=== PATIENT | male | born 1990 | race Two or more races ===

== ENCOUNTER 2024-08-15 22:39 | Emergency (ER) | payer MEDICAID ==
[~2024-08-15] VITALS: Ht 182.9 cm; Wt 90.7 kg
[2024-08-15] MEDS ORDERED: MORPHINE SULFATE 4 MG/1 ML DISP.SYRIN ONE (23:42)
[2024-08-15] MEDS ORDERED: DEXAMETHASONE SOD PHOSPHATE 4 MG INJ ONE (23:42)
[2024-08-15] MEDS: MORPHINE SULFATE 4 MG/1 ML DISP.SYRIN IV ONE (23:51)
[2024-08-15] MEDS: DEXAMETHASONE SOD PHOSPHATE 4 MG INJ IV ONE (23:51)
[2024-08-16 00:02] LABS: BASOPHILS % (AUTO) 0.1 % (0.0-2.0); EOSINOPHILS # (AUTO) 0.3 K/uL (0.0-0.7); EOSINOPHILS % (AUTO) 2.5 % (0.0-7.0); HEMATOCRIT 51.6 % (36.7-47.1); HEMOGLOBIN 17.3 g/dL (12.5-16.3); LYMPHOCYTES # (AUTO) 2.4 K/uL (0.8-4.8); LYMPHOCYTES % (AUTO) 18.7 % (20.5-51.5); MEAN CORPUSCULAR HEMOGLOBIN 30.2 uug (23.8-33.4); MEAN CORPUSCULAR HGB CONC 34 g/dL (32.5-36.3); MEAN CORPUSCULAR VOLUME 90.3 fL (73.0-96.2); MONOCYTES # (AUTO) 1.1 K/uL (0.1-1.30); MONOCYTES % (AUTO) 8.2 % (0.0-11.0); NEUTROPHILS # (AUTO) 9.1 K/uL (1.8-8.9); NEUTROPHILS % (AUTO) 70.5 % (38.5-71.5); PLATELET COUNT (AUTO) 176 K/uL (152-348); RED BLOOD CELL COUNT(AUTO) 5.72 MIL/uL (4.06-5.63); RED CELL DISTRIBUTION WIDTH 14.5 % (12.1-16.2); WHITE BLOOD COUNT (AUTO) 12.9 K/uL (3.6-10.2)
[2024-08-16 00:11] LABS: CALCIUM 9.5 mg/dL (8.5-10.1); DIFFERENTIAL COMMENT 1; POTASSIUM 3.6 mmol/L (3.5-5.1)
[2024-08-16 00:16] LABS: ALBUMIN 4.1 g/dL (3.4-5.0); BILIRUBIN,TOTAL 0.5 mg/dL (0.2-1.0); TOTAL PROTEIN, SERUM 7.5 g/dL (6.4-8.2)
[2024-08-16 00:19] LABS: C-REACTIVE PROTEIN 3.79 mg/dL (0.00-0.30)
[2024-08-16] MEDS ORDERED: PIPERACILLIN/TAZOBACTAM/D5W 50 ML IV ONE ×2 (00:40→07:47)
[2024-08-16] MEDS ORDERED: IV NORMAL SALINE 250 ML IV ONE (01:03)
[2024-08-16] MEDS ORDERED: IOHEXOL 300MG/ML 100 ML INFUS..BTL ONE (01:03)
[2024-08-16] MEDS ORDERED: SWABABLE VALVE TRANSFER SET EA MC ONE (01:03)
[2024-08-16] MEDS: IV LACTATED RINGERS SOLUTION 1,000 ML BAG IV ONE (01:08)
[2024-08-16] MEDS: PIPERACILLIN SODIUM/TAZOBACTAM 3.375 G in IV DEXTROSE 5% 50 ML IV ONE ×2 (01:08→07:52)
[2024-08-16] MEDS ORDERED: MORPHINE SULFATE 4 MG/1 ML DISP.SYRIN ONE ×2 (05:22→13:25)
[2024-08-16] MEDS: MORPHINE SULFATE 4 MG/1 ML DISP.SYRIN IV ONE ×3 (05:32→13:33)
[2024-08-16 13:19] VITALS: O2SAT 95
[2024-08-16] MEDS ORDERED: ONDANSETRON 4 MG/2 ML VIAL ONE (13:24)
[2024-08-16] MEDS: ONDANSETRON 4 MG/2 ML VIAL IV ONE (13:33)
[2024-08-16] MEDS: PIPERACILLIN SODIUM/TAZOBACTAM 3.375 G in IV DEXTROSE 5% 50 ML IV SCH (14:00)
== END 2024-08-16 14:00 | disposition short-term general hospital (02) ==
LOC: ER 22:43
DX: A41.9 Sepsis, unspecified organism (principal); R65.20 Severe sepsis without septic shock; K04.7 Periapical abscess without sinus; I10 Essential (primary) hypertension; F17.200 Nicotine dependence, unspecified, uncomplicated; R22.1 Localized swelling, mass and lump, neck; M54.2 Cervicalgia
CPT/HCPCS: 36415; 70491; 83605; 85025; 85610; 86140; 87040; A4606; A4663; J1100; J2270; J2405; J2543; J7120; Q9967

== ENCOUNTER 2025-01-19 19:49 | Emergency (ER) | payer SELFPAY ==
[~2025-01-19] VITALS: Ht 177.8 cm; Wt 107.7 kg
[2025-01-19 21:40] LABS: PLATELET COUNT (AUTO) 163 K/uL (152-348); RED BLOOD CELL COUNT(AUTO) 5.60 MIL/uL (4.06-5.63); RED CELL DISTRIBUTION WIDTH 13.5 % (12.1-16.2); WHITE BLOOD COUNT (AUTO) 10.6 K/uL (3.6-10.2)
[2025-01-19 21:45] LABS: CREATININE 1.2 mg/dL (0.6-1.3); SODIUM SERUM 144.0 mmol/L (136-145); UREA NITROGEN, BLOOD 14.0 mg/dL (7-18)
[2025-01-19] MEDS ORDERED: KETOROLAC TROMETHAMINE 15 MG INJ ONE (21:49)
[2025-01-19] MEDS ORDERED: ONDANSETRON 4 MG/2 ML VIAL ONE (21:49)
[2025-01-19] MEDS ORDERED: HYDROMORPHONE 1 MG/1 ML DISP.SYRIN ONE ×2 (21:50→23:05)
[2025-01-19] MEDS: HYDROMORPHONE 1 MG/1 ML DISP.SYRIN IV ONE ×2 (21:56→23:26)
[2025-01-19] MEDS: KETOROLAC TROMETHAMINE 15 MG INJ IVP ONE (21:56)
[2025-01-19] MEDS: ONDANSETRON 4 MG/2 ML VIAL IV ONE (21:56)
[2025-01-19 21:58] LABS: ASPARTATE AMINOTRANSFERASE 28.0 U/L (15-37); TOTAL PROTEIN, SERUM 7.7 g/dL (6.4-8.2)
[2025-01-19 22:06] LABS: *BILIRUBIN,URIN NEGATIVE (NEGATIVE); *BLOOD, URINE NEGATIVE (NEGATIVE); *CLARITY,URINE CLEAR (CLEAR); *COLOR,URINE YELLOW (YELLOW); *PROTEIN,URINE NEGATIVE (NEGATIVE); *UROBILINOGEN,URINE 0.2 E.U./dl (NORMAL); LEUKOCYTE ESTERASE ,URINE NEGATIVE (NEGATIVE); NITRITE, URINE NEGATIVE (NEGATIVE); UGLUCOSE NEGATIVE (NEGATIVE)
[2025-01-19 22:07] LABS: *KETONES,URINE NEGATIVE (NEGATIVE)
[2025-01-20 00:35] VITALS: BP 130/80
[2025-01-20] MEDS ORDERED: HYDR-3980 PO (01:26)
[2025-01-20] MEDS ORDERED: HYDROMORPHONE 1 MG/1 ML DISP.SYRIN ONE (01:31)
[2025-01-20] MEDS: HYDROMORPHONE 1 MG/1 ML DISP.SYRIN IV ONE (01:34)
[2025-01-20 01:42] VITALS: BP 131/79; O2SAT 99
== END 2025-01-20 01:32 | disposition home or self-care (01) ==
LOC: ER 19:56
DX: R10.11 Right upper quadrant pain (principal); F17.210 Nicotine dependence, cigarettes, uncomplicated; K57.30 Diverticulosis of large intestine without perforation or abscess without bleeding
CPT/HCPCS: 99285; 74176; 76705; 99406; 80076; 80048; 81003; 83690; 85025; 36415; 93005; J1885; J2405; J1171 ×3; A4606; A4663

== ENCOUNTER 2025-01-22 23:20 | Emergency (ER) | payer SELFPAY ==
[~2025-01-22] VITALS: Ht 182.9 cm; Wt 108.0 kg
[~2025-01-22 23:20] MED LIST: HYDR-3980 PO
[2025-01-22 23:33] VITALS: BP 125/90
[2025-01-23] MEDS ORDERED: HYDROMORPHONE 1 MG/1 ML DISP.SYRIN ONE (00:42)
[2025-01-23] MEDS: HYDROMORPHONE 1 MG/1 ML DISP.SYRIN IM ONE (00:46)
[2025-01-23 00:53] LABS: PLATELET COUNT (AUTO) 169 K/uL (152-348); RED BLOOD CELL COUNT(AUTO) 5.43 MIL/uL (4.06-5.63); RED CELL DISTRIBUTION WIDTH 13.7 % (12.1-16.2); WHITE BLOOD COUNT (AUTO) 9.1 K/uL (3.6-10.2)
[2025-01-23 01:01] LABS: CREATININE 1.1 mg/dL (0.6-1.3); SODIUM SERUM 143.0 mmol/L (136-145); UREA NITROGEN, BLOOD 18.0 mg/dL (7-18)
[2025-01-23 01:06] LABS: ASPARTATE AMINOTRANSFERASE 20.0 U/L (15-37); TOTAL PROTEIN, SERUM 7.5 g/dL (6.4-8.2)
[2025-01-23 01:08] LABS: *BILIRUBIN,URIN NEGATIVE (NEGATIVE); *BLOOD, URINE NEGATIVE (NEGATIVE); *CLARITY,URINE CLEAR (CLEAR); *COLOR,URINE YELLOW (YELLOW); *KETONES,URINE NEGATIVE (NEGATIVE); *PROTEIN,URINE NEGATIVE (NEGATIVE); *UROBILINOGEN,URINE 0.2 E.U./dl (NORMAL); LEUKOCYTE ESTERASE ,URINE NEGATIVE (NEGATIVE); NITRITE, URINE NEGATIVE (NEGATIVE); UGLUCOSE NEGATIVE (NEGATIVE)
[2025-01-23] MEDS ORDERED: KETOROLAC TROMETHAMINE 30 MG INJ ONE (02:05)
[2025-01-23] MEDS: KETOROLAC TROMETHAMINE 30 MG INJ IM ONE (02:10)
[2025-01-23 03:26] VITALS: BP 125/80; TEMP 98; O2SAT 96
== END 2025-01-23 03:26 | disposition home or self-care (01) ==
LOC: ER 23:20
DX: R10.11 Right upper quadrant pain (principal); K76.0 Fatty (change of) liver, not elsewhere classified; R16.0 Hepatomegaly, not elsewhere classified; F17.210 Nicotine dependence, cigarettes, uncomplicated; R05.3 Chronic cough
CPT/HCPCS: 99285; 76705; 80076; 80048; 81003; 83690; 85025; 36415; 96372 ×2; J1885; J1171; A4606; A4663